=== PATIENT | male | born 1945 | race Caucasian/White ===

== ENCOUNTER 2021-01-03 11:02 | Outpatient (CLI) | payer MEDICARE, BC ==
[2021-01-03 11:40] LABS: BASOPHILS % (AUTO) 0.5 %; EOSINOPHILS # (AUTO) 0.1 10^3/uL (0.0-0.7); EOSINOPHILS % (AUTO) 1.7 %; HGB - HEMOGLOBIN 13.5 g/dL (14.0-18.0); LYMPHOCYTES # (AUTO) 1.3 10^3/uL (1.5-3.5); LYMPHOCYTES % (AUTO) 16.3 %; MEAN CORPUSCULAR HEMOGLOBIN 31.3 pg (27.0-31.0); MEAN CORPUSCULAR HGB CONC 32.9 g/dL (32.0-36.0); MEAN CORPUSCULAR VOLUME 95.1 fL (80.0-94.0); MEAN PLATELET VOLUME 10.4 fL (7.4-11.4); MONOCYTES % (AUTO) 12.1 %; NEUTROPHILS # (AUTO) 5.5 10^3/uL (1.5-6.6); NEUTROPHILS % (AUTO) 69.1 %; PLT - PLATELET COUNT 238 10^3/uL (130-450); RED BLOOD COUNT 4.31 10^6/uL (4.70-6.10); RED CELL DISTRIBUTION WIDTH 13.3 % (12.0-15.0); WHITE BLOOD COUNT 7.9 x10^3/uL (4.8-10.8)
[2021-01-03 12:03] LABS: ALBUMIN 4.1 g/dL (3.2-5.5); ALKALINE PHOSPHATASE 65 IU/L (42-121); ALT ALANINE AMINOTRANSFERASE 20 IU/L (10-60); AST ASPARTATE AMINOTRANSFERASE 17 IU/L (10-42); BILIRUBIN,DIRECT 0.2 mg/dL (0.1-0.5); BILIRUBIN,TOTAL 0.9 mg/dL (0.2-1.0); BUN - BLOOD UREA NITROGEN 25 mg/dL (6-20); CALCIUM 8.6 mg/dL (8.5-10.3); CARBON DIOXIDE - CO2 29 mmol/L (21-32); CHLORIDE 101 mmol/L (101-111); CHOL/HDL RATIO 3.6 (<5.0); CHOLESTEROL 104 mg/dL; CREATININE 0.9 mg/dL (0.6-1.2); GFR - MDRD 82 (>89); GLUCOSE 133 mg/dL (70-100); HDL CHOLESTEROL 29 mg/dL; LDL CHOLESTEROL,CALCULATED 57 mg/dL; POTASSIUM 4.3 mmol/L (3.5-5.0); SODIUM 139 mmol/L (135-145); TOTAL PROTEIN 7.3 g/dL (6.7-8.2); TRIGLYCERIDES 90 mg/dL; VLDL CHOLESTEROL 18 mg/dL
[2021-01-05 12:46] LABS: HEPATITIS B CORE AB TOTAL REACTIVE (NON-REACTIVE); HEPATITIS B SURFACE ANTIGEN NON-REACTIVE (NON-REACTIVE)
[2021-01-05 13:01] LABS: HEPATITIS C ANTIBODY NON-REACTIVE (NON-REACTIVE)
== END 2021-01-03 11:03 | disposition home or self-care (01) ==
LOC: LAB 11:02
PROVIDERS: ATTEND Physician Assistant
DX: L40.0 Psoriasis vulgaris (principal); D48.5 Neoplasm of uncertain behavior of skin
CPT/HCPCS: 36415; 80048; 80061; 80076; 83721; 85025; 86317; 86480; 86704; 86803; 87340

== ENCOUNTER 2021-02-04 14:27 | Outpatient (CLI) | payer MEDICARE, BC ==
[2021-02-04 14:55] LABS: BASOPHILS % (AUTO) 0.3 %; EOSINOPHILS # (AUTO) 0.3 10^3/uL (0.0-0.7); EOSINOPHILS % (AUTO) 4.6 %; HCT - HEMATOCRIT 37.7 % (42.0-52.0); HGB - HEMOGLOBIN 12.5 g/dL (14.0-18.0); LYMPHOCYTES # (AUTO) 1.1 10^3/uL (1.5-3.5); LYMPHOCYTES % (AUTO) 16.8 %; MEAN CORPUSCULAR HEMOGLOBIN 31.7 pg (27.0-31.0); MEAN CORPUSCULAR HGB CONC 33.2 g/dL (32.0-36.0); MEAN CORPUSCULAR VOLUME 95.7 fL (80.0-94.0); MEAN PLATELET VOLUME 9.8 fL (7.4-11.4); MONOCYTES # (AUTO) 0.8 10^3/uL (0.0-1.0); MONOCYTES % (AUTO) 12.2 %; NEUTROPHILS # (AUTO) 4.2 10^3/uL (1.5-6.6); NEUTROPHILS % (AUTO) 65.8 %; PLT - PLATELET COUNT 244 10^3/uL (130-450); RED BLOOD COUNT 3.94 10^6/uL (4.70-6.10); RED CELL DISTRIBUTION WIDTH 13.7 % (12.0-15.0); WHITE BLOOD COUNT 6.4 x10^3/uL (4.8-10.8)
[2021-02-04 15:06] LABS: ALBUMIN 3.9 g/dL (3.2-5.5); BILIRUBIN,DIRECT 0.1 mg/dL (0.1-0.5); BILIRUBIN,TOTAL 0.6 mg/dL (0.2-1.0); TOTAL PROTEIN 6.6 g/dL (6.7-8.2)
== END 2021-02-04 14:28 | disposition home or self-care (01) ==
LOC: LAB 14:27
PROVIDERS: ATTEND Physician Assistant
DX: L40.0 Psoriasis vulgaris (principal)
CPT/HCPCS: 36415; 80076; 85025

== ENCOUNTER 2021-03-25 11:20 | Outpatient (CLI) | payer MEDICARE, BC ==
[2021-03-25 11:35] LABS: BASOPHILS % (AUTO) 0.5 %; EOSINOPHILS # (AUTO) 0.3 10^3/uL (0.0-0.7); EOSINOPHILS % (AUTO) 3.4 %; HCT - HEMATOCRIT 40.3 % (42.0-52.0); LYMPHOCYTES # (AUTO) 1.5 10^3/uL (1.5-3.5); LYMPHOCYTES % (AUTO) 20.1 %; MEAN CORPUSCULAR HEMOGLOBIN 32.1 pg (27.0-31.0); MEAN CORPUSCULAR HGB CONC 32.3 g/dL (32.0-36.0); MEAN CORPUSCULAR VOLUME 99.5 fL (80.0-94.0); MEAN PLATELET VOLUME 9.7 fL (7.4-11.4); MONOCYTES # (AUTO) 0.9 10^3/uL (0.0-1.0); MONOCYTES % (AUTO) 11.5 %; NEUTROPHILS # (AUTO) 4.7 10^3/uL (1.5-6.6); PLT - PLATELET COUNT 263 10^3/uL (130-450); RED BLOOD COUNT 4.05 10^6/uL (4.70-6.10); RED CELL DISTRIBUTION WIDTH 14.5 % (12.0-15.0); WHITE BLOOD COUNT 7.4 x10^3/uL (4.8-10.8)
[2021-03-25 11:50] LABS: BILIRUBIN,DIRECT 0.2 mg/dL (0.1-0.5)
== END 2021-03-25 11:21 | disposition home or self-care (01) ==
LOC: LAB 11:20
PROVIDERS: ATTEND Physician Assistant
DX: L40.0 Psoriasis vulgaris (principal)
CPT/HCPCS: 36415; 80076; 85025

== ENCOUNTER 2021-03-28 14:00 | Outpatient (CLI) | payer MEDICARE, BC | END 2021-03-28 14:01 | disposition home or self-care (01) | LOC: LAB.N 14:00 | PROVIDERS: ATTEND Physician Assistant | DX: L40.0 Psoriasis vulgaris (principal); Z53.9 Procedure and treatment not carried out, unspecified reason ==

== ENCOUNTER 2021-03-30 15:30 | Outpatient (CLI) | payer MEDICARE, BC ==
[2021-03-30 20:09] LABS: ESTIMATED AVERAGE GLUCOSE 166 mg/dL (70-100); HEMOGLOBIN A1c% 7.4 % (4.27-6.07)
== END 2021-03-30 15:31 | disposition home or self-care (01) ==
LOC: LAB.N 15:30
PROVIDERS: ATTEND Student in an Organized Health Care Education/Training Program
DX: E11.42 Type 2 diabetes mellitus with diabetic polyneuropathy (principal); Z79.4 Long term (current) use of insulin
CPT/HCPCS: 36415; 83036; 84520

== ENCOUNTER 2022-01-26 08:00 | Outpatient (CLI) | payer MEDICARE, BC | END 2022-01-26 23:59 | disposition home or self-care (01) | LOC: LAB.N 08:00 | PROVIDERS: ATTEND Physician Assistant Medical | DX: L03.114 Cellulitis of left upper limb (principal); L03.116 Cellulitis of left lower limb | CPT/HCPCS: 87070; 87181; 87205 ==

== ENCOUNTER 2022-02-21 12:33 | Outpatient (CLI) | payer MEDICARE, BC ==
[2022-02-21 18:28] LABS: CREATININE 0.9 mg/dL (0.6-1.2); POTASSIUM 4.5 mmol/L (3.5-5.0)
== END 2022-02-21 12:34 | disposition home or self-care (01) ==
LOC: LAB.N 12:33
PROVIDERS: ATTEND Internal Medicine Cardiovascular Disease
DX: I50.23 Acute on chronic systolic (congestive) heart failure (principal)
CPT/HCPCS: 36415; 80048

== ENCOUNTER 2022-03-06 10:50 | Outpatient (CLI) | payer MEDICARE, BC ==
[2022-03-06 17:52] LABS: CALCIUM 9.2 mg/dL (8.5-10.3); POTASSIUM 5.1 mmol/L (3.5-5.0)
== END 2022-03-06 10:51 | disposition home or self-care (01) ==
LOC: LAB.N 10:50
PROVIDERS: ATTEND Internal Medicine Cardiovascular Disease
DX: I50.22 Chronic systolic (congestive) heart failure (principal)
CPT/HCPCS: 36415; 80048

== ENCOUNTER 2024-03-10 12:42 | Outpatient (CLI) | payer MEDICARE | END 2024-03-10 23:59 | disposition critical access hospital (66) | LOC: EMS 12:42 | DX: S00.81XA Abrasion of other part of head, initial encounter (principal); M25.511 Pain in right shoulder; M25.512 Pain in left shoulder; R53.1 Weakness; W10.8XXA Fall (on) (from) other stairs and steps, initial encounter; Y93.01 Activity, walking, marching and hiking; Y92.008 Other place in unspecified non-institutional (private) residence as the place of occurrence of the external cause | CPT/HCPCS: A0425; A0429 ==

== ENCOUNTER 2024-03-10 13:16 | Emergency (ER) | payer BC, MEDICARE, OTHER ==
--- NOTE | 2024-03-10 13:49 | ED Physician Documentation ---
PD HPI HEAD INJURY - Stated complaint Stated Complaint: GLF - Chief complaint Chief Complaint: Trauma Hd/Nk - History obtained from History obtained from: Patient - Additional information Additional information: The patient comes to the emergency department chief complaint fall and head injury. He states that he was walking and that his legs got weak and he stumbled forward, hitting his head on the edge of a door. He did not lose consciousness. He states that when he hit his head he felt a sharp nervelike pain go down both arms. He still has the pain radiating down through his bilateral shoulders into his upper arms. He states this is better than when it first happened. He denies any neck pain. No weakness in his arms or legs. No pain in his back, ribs, abdomen, hips, or legs. No other complaints at this time. He is not on anticoagulation. PD PAST MEDICAL HISTORY - Past Medical History Past Medical History: Yes Cardiovascular: Congestive heart failure, Hypertension, [place] Endocrine/Autoimmune: Type 2 diabetes - Past Surgical History Past Surgical History: Yes Cardiovascular: CABG - Present Medications Home Medications: Ambulatory Orders Medication Instructions Recorded Confirmed Home Medications Unobtainable 03/10/24 03/10/24 [HOME MEDICATIONS UNOBTAINABLE] - Allergies Allergies/Adverse Reactions: Allergies Allergy/AdvReac Type Severity Reaction Status Date / Time Iodinated Contrast Media Allergy Anaphylaxis Verified 03/10/24 13:30 levofloxacin Allergy Hives Verified 03/10/24 13:30 lisinopril AdvReac Unknown Verified 03/10/24 13:30 - Social History Does the pt smoke?: No Smoking Status: Never smoker - Immunizations Immunizations are current?: No PD ED PE NORMAL - Vitals Vital signs reviewed: Yes - General General: Alert and oriented X 3, No acute distress, Well developed/nourished - HEENT HEENT: EOMI, Moist mucous membranes - Neck Neck: Supple, no meningeal sign, No bony TTP (No step-off.) - Cardiac Cardiac: RRR, No murmur - Respiratory Respiratory: No respiratory distress, Clear bilaterally - Abdomen Abdomen: Soft, Non tender, Non distended - Derm Derm: Normal color, Warm and dry, No rash - Extremities Extremities: No deformity, No edema, Other (No tenderness to palpation of any of the 4 extremities. No deformity. No limitation to range of motion.) - Neuro Neuro: pole tester 2-12 intact, No motor deficit, No sensory deficit, Normal speech, Other (Alert, appropriate.) - Psych Psych: Normal mood, Normal affect Results - Vitals Vitals: Oxygen O2 Source Room air - Rads (name of study) CT head Relevant Findings:: Final report received, See rad report (Negative) CT C-spine Relevant Findings:: Final report received, See rad report (DJD otherwise negative) PD Medical Decision Making - ED course Complexity details: reviewed results, re-evaluated patient, considered differential, d/w patient ED course: The patient was worked up with CT scans of the head and cervical spine, both of which were negative for acute findings. The patient was stable for discharge home. We have discussed symptomatic management at home as well as the usual indications for return. Departure - Departure Disposition: 01 Home, Self Care Clinical Impression: Ground-level fall Closed head injury Qualifiers: Encounter type: initial encounter Qualified Code(s): S09.90XA - Unspecified injury of head, initial encounter Condition: Stable Instructions: ED Head Injury Closed Comments: The CT scans of your head and neck both look good. You have no bleeding in your brain and you have not broken any of the bones in your neck. You may have strained your neck causing the shooting pains that are going down both shoulders. You may take some ibuprofen and Tylenol as needed for this. You have some swelling and a superficial wound on your forehead. You may put a little antibiotic ointment such as Neosporin on this every day until it scabs over. If you wish, you may cover with a Band-Aid or leave it open to air. Please follow-up with your primary doctor as needed. Forms: PCP List Discharge Date/Time: 03/10/24 15:57
[2024-03-10 13:52] VITALS: O2SAT 94
--- NOTE | 2024-03-10 14:57 | CT Report ---
PROCEDURE: Head WO INDICATIONS: fall/head inj TECHNIQUE: Noncontrast 4.5 mm thick angled axial sections acquired from the foramen magnum to the vertex. For r adiation dose reduction, the following was used: automated exposure control, adjustment of mA and/or kV according to patient size. COMPARISON: None. FINDINGS: Image quality: Diagnostic CSF spaces: Basal cisterns are patent. Lateral ventricles are symmetric. Volume: Vascular calcifications. Periventricular white matter disease is commonly seen with chronic m icroangiopathy. Volume loss is present. These findings are mild to moderate. Brain: No intracranial hemorrhage. Puente-white differentiation is grossly maintained. Partially empty sella Craniofacial structures: No significant paranasal sinus opacity. Supraorbital contusion/hemorrhage. IMPRESSION: No acute intracranial abnormality. Supraorbital contusion/soft tissue injury. Reviewed by: Abdulaziz Mccracken MD on 03/10/2024 2:56 PM PDT Approved by: Abdulaziz Mccracken MD on 03/10/2024 2:56 PM PDT Station ID: [id number]
--- NOTE | 2024-03-10 15:00 | CT Report ---
PROCEDURE: Cervical Spine WO INDICATIONS: fall/hit head/nerve pain down arms TECHNIQUE: Noncontrast 3 mm thick sections acquired from the skull base to the T4 level. Sagittal and coronal r eformats were then constructed. For radiation dose reduction, the following was used: automated exp osure control, adjustment of mA and/or kV according to patient size. COMPARISON: None. FINDINGS: Image quality: Diagnostic Bones: Mild/moderate degenerative changes. There is straightening of the normal cervical lordosis. No acute vertebral body height loss or traumatic subluxation. Soft tissues: Pleural thickening. Possible trace left effusion versus atelectasis. This is only parti ally seen. No apical pneumothorax. There are vascular calcifications. There is mild thickening of the prevertebral soft tissues, but with fatty attenuation, possibly repre senting senescent changes and fatty hypertrophy. Retropharyngeal course of the right ICA. IMPRESSION: Mild to moderate degenerative changes. No acute fracture or traumatic subluxation. If there is high concern for further derangement, consider MRI evaluation. Other findings above Reviewed by: Abdulaziz Mccracken MD on 03/10/2024 2:59 PM PDT Approved by: Abdulaziz Mccracken MD on 03/10/2024 2:59 PM PDT Station ID: [id number]
[2024-03-10 15:34] VITALS: BP 144/83
[2024-03-10] MEDS: ACETAMINOPHEN 500 MG TABLET PO STA (15:51)
[2024-03-10] MEDS: KETOROLAC 15 MG/ML VIAL IM STA (15:51)
== END 2024-03-10 15:57 | disposition home or self-care (01) ==
LOC: EDUNIT# → ED 13:16
DX: S09.90XA Unspecified injury of head, initial encounter (principal); W18.39XA Other fall on same level, initial encounter; I11.0 Hypertensive heart disease with heart failure; I50.9 Heart failure, unspecified; I25.2 Old myocardial infarction; E11.9 Type 2 diabetes mellitus without complications; I25.10 Atherosclerotic heart disease of native coronary artery without angina pectoris; Z95.1 Presence of aortocoronary bypass graft
CPT/HCPCS: 70450; 72125; 99283; 99284; A9270